=== PATIENT | female | born 1985 | race Caucasian/White ===

== ENCOUNTER 2018-04-07 23:19 | Emergency (ER) | payer MEDICAID, OTHER ==
[2018-04-07 23:20] VITALS: BMI 26.6
[2018-04-07 23:45] VITALS: TEMP 98.6
[2018-04-07] MEDS ORDERED: Sodium Chloride 0.9% 1,000 ML IV STA (23:50)
--- NOTE | 2018-04-08 | ED PDOC ---
Arrival/HPI - General Chief Complaint: Abdominal Pain Time Seen by Provider: 04/07/18 23:43 Historian: Patient - History of Present Illness Narrative History of Present Illness (Text): 04/07/18 23:57 32 year old female, with no significant past medical history, presents to the emergency department with abdominal pain, since this morning. Patient states she has been feeling pain localized to the upper abdomen and right side, since she woke up. Patient denies any changes in food. Patient states she is on control and is spotting now. Patient denies any nausea, vomiting, diarrhea. Patient also denies any chest pain, shortness of breath, cough, or any other complaints. Time/Duration: 24 hours Symptom Onset: Gradual Symptom Course: Unchanged Quality: Cramping Activities at Onset: Light Past Medical History - Provider Review Nursing Documentation Reviewed: Yes - Past History Past History: No Previous - Infectious Disease Hx of Infectious Diseases: None - Reproductive Currently : No - Genitourinary/Gynecological Other/Comment: x4 - Psychiatric Hx Substance Use: No - Past Surgical History Past Surgical History: No Previous - Anesthesia Hx Anesthesia: No Family/Social History - Physician Review Nursing Documentation Reviewed: Yes Family/Social History: No Known Family HX Smoking Status: Never Smoked Hx Alcohol Use: Yes Frequency of alcohol use: Socially Hx Substance Use: No Hx Substance Use Treatment: No Allergies/Home Meds Allergies/Adverse Reactions: Allergies No Known Allergies Allergy (Verified 10/08/16 14:46) Review of Systems - Physician Review All systems were reviewed & negative as marked: Yes - Review of Systems Constitutional: absent: Fevers, Night Sweats Respiratory: absent: SOB, Cough Cardiovascular: absent: Chest Pain Gastrointestinal: Abdominal Pain. absent: Diarrhea, Nausea, Vomiting Physical Exam Vital Signs Reviewed: Yes Vital Signs Temp Pulse Resp BP Pulse Ox 04/07/18 23:41 98.6 F 74 14 133/91 H 96 Temperature: Afebrile Blood Pressure: Hypertensive Pulse: Regular Respiratory Rate: Normal Appearance: Positive for: Well-Appearing, Non-Toxic, Comfortable Pain Distress: None Mental Status: Positive for: Alert and Oriented X 3 - Systems Exam Head: Present: Atraumatic, Normocephalic Pupils: Present: PERRL Extroacular Muscles: Present: EOMI Conjunctiva: Present: Normal Mouth: Present: Moist Mucous Membranes Neck: Present: Normal Range of Motion Respiratory/Chest: Present: Clear to Auscultation, Good Air Exchange. No: Respiratory Distress, Accessory Muscle Use Cardiovascular: Present: Regular Rate and Rhythm, Normal S1, S2. No: Murmurs Abdomen: Present: Tenderness (to the upper abdomen). No: Distention, Peritoneal Signs Back: Present: Normal Inspection Upper Extremity: Present: Normal Inspection. No: Cyanosis, Edema Lower Extremity: Present: Normal Inspection. No: Edema Neurological: Present: GCS=15, CN II-XII Intact, Speech Normal Skin: Present: Warm, Dry, Normal Color. No: Rashes Psychiatric: Present: Alert, Oriented x 3, Normal Insight, Normal Concentration Medical Decision Making ED Course and Treatment: 04/08/18 00:01 Impression: 32 year old female presents with upper abdominal pain Plan: -- EKG -- CMP, Lipase -- CBC -- Chest X-ray -- Pepcid, Protonix, Toradol -- Reassess and disposition Prior Visits: Notes and results from previous visits were reviewed Progress Notes: 04/08/18 03:13 Ultrasound of the gallbladder. Indication: Right upper quadrant pain. Technique: Real-time ultrasound images were obtained. Findings: Liver measures 17.8 cm. Unremarkable gallbladder. Normal gallbladder wall thickness measuring 2 mm. Unremarkable pancreas as visualized. Nondilated common bile duct measuring 5.6 mm. Nonaneurysmal aorta. Unremarkable IVC. The right kidney measures 11.4x4.2x4.5 cm without evidence of hydronephrosis or calculi. Impression: Unremarkable exam. - RAD Interpretation Radiology Orders: 04/07/18 23:49 CHEST PORTABLE [RAD] Stat - Medication Orders Current Medication Orders: Sodium Chloride (Sodium Chloride 0.9%) 1,000 mls @ 999 mls/hr IV .Q1H1M STA Stop: 04/08/18 00:50 Discontinued Medications Famotidine (Pepcid) 20 mg IVP STAT STA Stop: 04/07/18 23:51 Ketorolac Tromethamine (Toradol) 30 mg IVP ONCE ONE Stop: 04/07/18 23:51 Pantoprazole Sodium (Protonix Inj) 40 mg IVP ONCE STA Stop: 04/07/18 23:51 - Scribe Statement The provider has reviewed the documentation as recorded by the Ezra Guo Provider Scribe Attestation: All medical record entries made by the Scribe were at my direction and personally dictated by me. I have reviewed the chart and agree that the record accurately reflects my personal performance of the history, physical exam, medical decision making, and the department course for this patient. I have also personally directed, reviewed, and agree with the discharge instructions and disposition. Disposition/Present on Arrival - Present on Arrival Any Indicators Present on Arrival: No History of DVT/PE: No History of Uncontrolled Diabetes: No Urinary Catheter: No History of Decub. Ulcer: No History Surgical Site Infection Following: None - Disposition Have Diagnosis and Disposition been Completed?: Yes Diagnosis: Gastritis Disposition: HOME/ ROUTINE Disposition Time: 03:47 Patient Plan: Discharge Condition: GOOD Discharge Instructions (ExitCare): Gastritis (DC) Additional Instructions: [place] diet next few days/avoid alcohol/fatty foods/caffeinated beverages/take meds as prescribed/follow up with your doctor Prescriptions: Pantoprazole Sodium [Protonix] 40 mg PO DAILY #21 ect Referrals: Finesse Bhakta MD [Primary Care Provider] - Follow up with primary Forms: [employer] (Turkmen)
[2018-04-08 00:32] LABS: HEMOGLOBIN 11.9 g/dL (12.0-16.0); MEAN CELL VOLUME 81.5 fl (80.0-105.0); MEAN CORPUSCULAR HEMOGLOBIN 25.6 pg (25.0-35.0); MEAN CORPUSCULAR HGB CONC 31.5 g/dl (31.0-37.0); MEAN PLATELET VOLUME 11.3 fl (7.0-11.0); RBC 4.64 10^6/uL (3.5-6.1); RED CELL DISTRIBUTION WIDTH 13.6 % (11.5-14.5); WHITE BLOOD COUNT 7.8 10^3/uL (4.5-11.0)
[2018-04-08 00:37] LABS: ALB/GLOB RATIO 1.3 (1.1-1.8); ALBUMIN 4.8 g/dL (3.0-4.8); ALT/SGPT 13 U/L (7-56); AST/SGOT 25 U/L (14-36); BLOOD UREA NITROGEN 16 mg/dL (7-21); CALCIUM 10.1 mg/dL (8.4-10.5); GFR NON-AFRICAN AMERICAN > 60; LIPASE 27 U/L (23-300)
[2018-04-08 03:50] VITALS: BP 146/82; PULSE 69; RESP 19; O2SAT 99
--- NOTE | 2018-04-08 09:51 | US ---
Date of service: 04/08/2018 HISTORY: pain COMPARISON: None. TECHNIQUE: Sonographic evaluation of the right upper quadrant of the abdomen. FINDINGS: LIVER: Measures 17.8 cm in length. Patent portal vein. Portal venous flow: Hepatopetal. Unremarkable echogenicity of the liver parenchyma. No mass. No intrahepatic bile duct dilatation. GALLBLADDER: Unremarkable. No gallstones. COMMON BILE DUCT: Measures 4.8 mm. No stones. No dilatation. PANCREAS: Unremarkable as visualized. No mass. No ductal dilatation. RIGHT KIDNEY: Measures 4.2 x 11.4 cm in length. Normal echogenicity. No calculus, mass, or hydronephrosis. AORTA: No aneurysmal dilatation. IVC: Unremarkable. OTHER FINDINGS: None . IMPRESSION: No significant or acute findings to account for/ related to the clinical presentation. Concordant findings (preliminary report) provided by [employer] [facility].
--- NOTE | 2018-04-08 10:55 | RAD ---
Date of service: 04/08/2018 HISTORY: abdominal COMPARISON: No prior. FINDINGS: LUNGS: No active pulmonary disease. PLEURA: No significant pleural effusion identified, no pneumothorax apparent. CARDIOVASCULAR: No aortic atherosclerotic calcification present. Normal cardiac size. No pulmonary vascular congestion. OSSEOUS STRUCTURES: No significant abnormalities. VISUALIZED UPPER ABDOMEN: Normal. OTHER FINDINGS: None. IMPRESSION: No active disease.
== END 2018-04-08 03:54 | disposition home or self-care (01) ==
LOC: ED 23:19
DX: K29.70 Gastritis, unspecified, without bleeding (principal)
CPT/HCPCS: 71045; 76705; 80053; 81025; 83690; 85027; 96361; 96374; 96375; 99284; C9113; J1885; J7030

== ENCOUNTER 2018-07-29 03:20 | Emergency (ER) | payer OTHER ==
[2018-07-29 03:20] VITALS: BMI 26.6
[2018-07-29 03:45] VITALS: TEMP 98.8
[2018-07-29] MEDS ORDERED: Sodium Chloride 0.9% 1,000 ML IV STA (03:53)
[2018-07-29 04:05] LABS: HEMOGLOBIN 12.8 g/dL (12.0-16.0); MEAN CELL VOLUME 79.4 fl (80.0-105.0); MEAN CORPUSCULAR HEMOGLOBIN 25.7 pg (25.0-35.0); MEAN CORPUSCULAR HGB CONC 32.3 g/dl (31.0-37.0); MEAN PLATELET VOLUME 10.6 fl (7.0-11.0); RBC 4.99 10^6/uL (3.5-6.1); RED CELL DISTRIBUTION WIDTH 13.2 % (11.5-14.5); WHITE BLOOD COUNT 8.6 10^3/uL (4.5-11.0)
[2018-07-29 04:28] LABS: ALB/GLOB RATIO 1.2 (1.1-1.8); ALBUMIN 4.6 g/dL (3.0-4.8); ALT/SGPT 15 U/L (7-56); AST/SGOT 23 U/L (14-36); BLOOD UREA NITROGEN 13 mg/dL (7-21); CALCIUM 10.4 mg/dL (8.4-10.5); GFR NON-AFRICAN AMERICAN > 60; LIPASE 47 U/L (23-300)
--- NOTE | 2018-07-29 04:41 | ED PDOC ---
Arrival/HPI - General Chief Complaint: Abdominal Pain Time Seen by Provider: 07/29/18 03:46 Historian: Patient - History of Present Illness Narrative History of Present Illness (Text): 07/29/18 04:38 33 year old female, whose past medical history includes gastritis, presents to the emergency department for stomach discomfort, for 5 days. Patient states pain feels like cramping. Patient denies any associated nausea, vomiting, or diarrhea. Patient also denies any fevers, chills, headache, dizziness, chest pain, shortness of breath, dyspnea on exertion, cough, back pain, neck pain, or any other complaint. Time/Duration: < week Symptom Onset: Gradual Symptom Course: Unchanged Quality: Cramping Activities at Onset: Light Context: Home Past Medical History - Provider Review Nursing Documentation Reviewed: Yes - Past History Past History: No Previous - Infectious Disease Hx of Infectious Diseases: None - Genitourinary/Gynecological Other/Comment: x4 - Psychiatric Hx Substance Use: No - Past Surgical History Past Surgical History: No Previous - Anesthesia Hx Anesthesia: No Family/Social History - Physician Review Nursing Documentation Reviewed: Yes Family/Social History: No Known Family HX Smoking Status: Never Smoked Hx Alcohol Use: Yes Hx Substance Use: No Hx Substance Use Treatment: No Allergies/Home Meds Allergies/Adverse Reactions: Allergies No Known Allergies Allergy (Verified 10/08/16 14:46) Review of Systems - Physician Review All systems were reviewed & negative as marked: Yes - Review of Systems Constitutional: absent: Fevers, Night Sweats Respiratory: absent: SOB, Cough Cardiovascular: absent: Chest Pain, AHMADI Gastrointestinal: Abdominal Pain. absent: Diarrhea, Nausea, Vomiting Musculoskeletal: absent: Back Pain, Neck Pain Neurological: absent: Headache, Dizziness Physical Exam Vital Signs Reviewed: Yes Vital Signs Temp Pulse Resp BP Pulse Ox 07/29/18 03:41 98.8 F 65 18 154/89 H 100 Temperature: Afebrile Blood Pressure: Hypertensive Pulse: Regular Respiratory Rate: Normal Appearance: Positive for: Well-Appearing, Non-Toxic, Comfortable Pain Distress: None Mental Status: Positive for: Alert and Oriented X 3 - Systems Exam Head: Present: Atraumatic, Normocephalic Pupils: Present: PERRL Extroacular Muscles: Present: EOMI Conjunctiva: Present: Normal Mouth: Present: Moist Mucous Membranes Neck: Present: Normal Range of Motion Respiratory/Chest: Present: Clear to Auscultation, Good Air Exchange. No: Respiratory Distress, Accessory Muscle Use Cardiovascular: Present: Regular Rate and Rhythm, Normal S1, S2. No: Murmurs Abdomen: No: Tenderness, Distention, Peritoneal Signs Back: Present: Normal Inspection Upper Extremity: Present: Normal Inspection. No: Cyanosis, Edema Lower Extremity: Present: Normal Inspection. No: Edema Neurological: Present: GCS=15, CN II-XII Intact, Speech Normal Skin: Present: Warm, Dry, Normal Color. No: Rashes Psychiatric: Present: Alert, Oriented x 3, Normal Insight, Normal Concentration Medical Decision Making ED Course and Treatment: 07/29/18 04:42 Impression: 33 year old female presents with abdominal pain. Plan: -- Pepcid -- Toradol -- Urinalysis -- Reassess and disposition Prior Visits: Notes and results from previous visits were reviewed. Progress Notes: - Lab Interpretations Lab Results: Total Bilirubin 0.4 mg/dL (0.2-1.3) 07/29/18 03:55 AST 23 U/L (14-36) 07/29/18 03:55 ALT 15 U/L (7-56) 07/29/18 03:55 Alkaline Phosphatase 95 U/L (38-126) 07/29/18 03:55 Total Protein 8.4 g/dL (5.8-8.3) H 07/29/18 03:55 Albumin 4.6 g/dL (3.0-4.8) 07/29/18 03:55 Globulin 3.8 gm/dL 07/29/18 03:55 Albumin/Globulin Ratio 1.2 (1.1-1.8) 07/29/18 03:55 Lipase 47 U/L (23-300) 07/29/18 03:55 - Medication Orders Current Medication Orders: Sodium Chloride (Sodium Chloride 0.9%) 1,000 mls @ 999 mls/hr IV .Q1H1M STA Stop: 07/29/18 04:53 Last Admin: 07/29/18 04:10 Dose: 999 mls/hr eMAR Start Stop Document 07/29/18 04:10 JOL (Rec: 07/29/18 04:11 JOL [facility] [place]-ER-20) Intravenous Solution Start Date 05/29/19 Start Time 04:10 End Date 07/29/18 End time 05:11 Total Infusion Time 61 Discontinued Medications Famotidine (Pepcid) 20 mg IVP STAT STA Stop: 07/29/18 03:55 Last Admin: 07/29/18 04:10 Dose: 20 mg IVP Administration Document 07/29/18 04:10 JOL (Rec: 07/29/18 04:10 JOL [facility] [place]-ER-20) Charges for Administration # of IVP Administrations 1 Ketorolac Tromethamine (Toradol) 30 mg IVP ONCE ONE Stop: 07/29/18 03:55 Last Admin: 07/29/18 04:10 Dose: 30 mg MAR Pain Assessment Document 07/29/18 04:10 JOL (Rec: 07/29/18 04:10 JOL [facility] [place]-ER-20) Pain Reassessment Is this a pain reassessment? No Sleep Is patient sleeping during reassessment? No Presence of Pain Presence of Pain Yes Pain Scale Used Protocol: PSCALES Pain Scale Used Numeric Location Pain Location Body Site Abdomen Description Intensity of Pain at present 6 IVP Administration Document 07/29/18 04:10 JOL (Rec: 07/29/18 04:10 JOL [facility] [place]-ER-20) Charges for Administration # of IVP Administrations 1 - Scribe Statement The provider has reviewed the documentation as recorded by the Ezra Guo Provider Scribe Attestation: All medical record entries made by the Scribe were at my direction and personally dictated by me. I have reviewed the chart and agree that the record accurately reflects my personal performance of the history, physical exam, medical decision making, and the department course for this patient. I have also personally directed, reviewed, and agree with the discharge instructions and disposition. Disposition/Present on Arrival - Present on Arrival Any Indicators Present on Arrival: No History of DVT/PE: No History of Uncontrolled Diabetes: No Urinary Catheter: No History of Decub. Ulcer: No History Surgical Site Infection Following: None - Disposition Have Diagnosis and Disposition been Completed?: Yes Diagnosis: Gastritis Disposition: HOME/ ROUTINE Disposition Time: 05:56 Patient Plan: Discharge Patient Problems: Current Active Problems Problem Status Onset Gastritis Acute Condition: GOOD Discharge Instructions (ExitCare): Gastritis (DC) Additional Instructions: Take meds as prescribed/avoid alcohol or caffeinated beverages/follow up with your doctor this week Prescriptions: Pantoprazole [Protonix] 40 mg PO DAILY #14 ect Referrals: [facility] [Outside] - Follow up with primary Abby Sofia MD [Medical Doctor] - Follow up with primary Forms: [employer] (Portuguese)
[2018-07-29 06:35] VITALS: BP 132/78; PULSE 66; RESP 15; O2SAT 99
== END 2018-07-29 06:10 | disposition home or self-care (01) ==
LOC: ED 03:20
DX: K29.70 Gastritis, unspecified, without bleeding (principal)
CPT/HCPCS: 80053; 81025; 83690; 85027; 96361; 96374; 96375; 99283; J1885; J7030